=== PATIENT | male | born 1970 | race Caucasian/White ===

== ENCOUNTER 2016-07-09 13:13 | Emergency (ER) | payer BC ==
--- NOTE | 2016-07-09 13:31 | EDM.PDOC ---
ED HPI GI/ABDOMINAL - General Stated Complaint: ABDOMINAL PAIN Time Seen by Provider: 07/09/16 13:31 Source of Information: Reports: Patient - History of Present Illness INITIAL COMMENTS - FREE TEXT/NARRATIVE: Patient with N/V/D that started Tuesday. He has been doing bland diet and fluids , Zofran ODT. His son had this as well and it resolved in 1-2 days. Patient now feeling weaker, N/V persists but he has not had a BM in 2 days. Decreased appetite, tolerating small sips of fluids. Denies fever. Here today as pain is worse (LLQ) and no improvement in symptoms. - Related Data Allergies/ADRs: Allergies Allergy/AdvReac Type Severity Reaction Status Date / Time celecoxib [From Celebrex] Allergy Dizziness Verified 07/09/16 13:28 Home Meds: Home Meds Aspirin 81 mg PO BRK 07/09/16 [History] Gabapentin [Neurontin] 300 mg PO TID 07/09/16 [History] Insulin Glarg,Human.Rec.Analog [Lantus] 61 units SUBCUT BEDTIME 07/09/16 [ History] Insulin Lispro [Humalog Kwikpen U-100] 20 units SUBCUT TIDMEALS 07/09/16 [ History] Lisinopril 10 mg PO DAILY 07/09/16 [History] Ondansetron [Zofran ODT] 4 mg PO Q4H 07/09/16 [History] Rosuvastatin [Crestor] 10 mg PO BEDTIME 07/09/16 [History] traZODone 1 tab PO BEDTIME 07/09/16 [History] Social & Family History - Tobacco Use Years of Tobacco use: 25 Used Tobacco, but Quit: No Second Hand Smoke Exposure: No - Alcohol Use Days Per Week of Alcohol Use: 0 - Recreational Drug Use Recreational Drug Use: Yes Drug Use in Last 12 Months: No Recreational Drug Type: Reports: Marijuana/Hashish, Other (see below) ED ROS GENERAL - Review of Systems Review Of Systems: See Below Constitutional: Reports: chills, weakness, fatigue, decreased appetite. Denies : fever HEENT: Reports: No symptoms Respiratory: Reports: No Symptoms Cardiovascular: Reports: No symptoms GI/Abdominal: Reports: Abdominal pain, Diarrhea, Decreased appetite, Nausea, Vomiting. Denies: Constipation, Distension, Hematochezia, Melena : Reports: no symptoms Musculoskeletal: Reports: no symptoms Skin: Reports: no symptoms ED EXAM, GI/ABD - Physical Exam Exam: See Below Exam Limited By: No limitations General Appearance: alert, WD/WN, moderate distress Throat/Mouth: Normal oropharynx, Other (Dry mucus membranes) Head: atraumatic, normocephalic Neck: normal inspection. No: lymphadenopathy (L), lymphadenopathy (R) Respiratory/Chest: no respiratory distress, lungs clear, normal breath sounds Cardiovascular: normal peripheral pulses, regular rate, rhythm, no murmur GI/Abdominal: normal bowel sounds, soft, tenderness (Lower abdominal tenderness , worse on left side). No: McBurney's sign, Osborn's sign Skin Exam: Warm, Dry Course - Vital Signs Last Recorded V/S: Last Vital Signs Temp 98.4 F 07/09/16 13:28 Pulse 101 H 07/09/16 13:28 Resp 14 07/09/16 13:28 BP 157/96 H 07/09/16 13:28 Pulse Ox 95 07/09/16 13:28 - Orders/Labs/Meds Orders: Active Orders 24 hr Category Date Time Status CULTURE STOOL + SHIGATOX [RM] Stat Lab 07/09/16 16:42 Received Labs: Laboratory Tests 07/09/16 07/09/16 Range/Units 13:45 16:42 Lipase < 10 L (73-393) U/L C.difficile [id number] Presumptive negative C. difficile Tox (PCR) Negative Meds: Medications Discontinued Medications Generic Name Dose Route Start Last Admin Trade Name Freq PRN Reason Stop Dose Admin Al Hydroxide/Mg Hydroxide 30 0 ml 07/09/16 16:55 07/09/16 17:07 ml/ Lidocaine HCl 15 ml PO 07/09/16 16:56 45 ml ONETIME ONE Administration Diatrizoate Meglum/Diatrizoate Sod 90 ml 07/09/16 16:23 07/09/16 16:26 Gastrografin 37% PO 07/09/16 16:24 90 ml ONETIME ONE Administration Hydromorphone HCl 0.5 mg 07/09/16 14:05 07/09/16 14:16 Dilaudid IVPUSH 07/09/16 14:06 0.5 mg ONETIME ONE Administration Hydromorphone HCl 0.5 mg 07/09/16 14:50 07/09/16 14:56 Dilaudid IVPUSH 07/09/16 14:51 0.5 mg ONETIME ONE Administration Sodium Chloride 1,000 mls @ 999 mls/hr 07/09/16 14:04 07/09/16 14:15 Normal Saline IV 07/09/16 15:04 999 mls/hr ONETIME ONE Administration Sodium Chloride 1,000 mls @ 150 mls/hr 07/09/16 16:15 07/09/16 16:45 Normal Saline IV 150 mls/hr ASDIRECTED LAZARUS Administration Iopamidol 150 ml 07/09/16 16:23 07/09/16 16:26 Isovue-300 (61%) IVPUSH 07/09/16 16:24 125 ml ONETIME ONE Administration Ondansetron HCl 4 mg 07/09/16 14:05 07/09/16 14:15 Zofran IVPUSH 07/09/16 14:06 4 mg ONETIME ONE Administration Sodium Chloride 10 ml 07/09/16 16:23 07/09/16 16:26 Saline Flush FLUSH 10 ml ONETIME PRN Administration IV FLUSH - Re-Assessments/Exams Free Text/Narrative Re-Assessment/Exam: WBC elevated at 18,270, CRP 3.5. H pylori serum drawn in [facility] was positive but stool was negative. No WBC on stool culture and C diff negative. CT demonstrates no acute pathology. Patient significantly improved with Zofran and IV fluids. I suspect back pain from lying around this week. Will discharge home, bland diet and push fluids. He is to follow-up in the clinic on Tuesday if not resolved. 07/09/16 20:07 Departure - Departure Time of Disposition: 18:56 Disposition: Home, Self-Care 01 Condition: good Clinical Impression: Gastroenteritis Instructions: Viral Gastroenteritis, Adult, [id number] Referrals: Flavio Walker Jr, MD [Primary Care Provider] - Forms: ED Department Discharge Additional Instructions: Rest, push oral fluids, bland diet as tolerated. Zofran as needed. Follow-up with primary provider Tuesday if symptoms not resolved or certainly back to ER if any worsening of pain, fever or not tolerating oral fluids. - My Orders Last 24 Hours: My Active Orders 07/09/16 16:42 CULTURE STOOL + SHIGATOX [RM] Stat - Assessment/Plan Last 24 Hours: My Active Orders 07/09/16 16:42 CULTURE STOOL + SHIGATOX [RM] Stat
[2016-07-09 13:35] VITALS: BP 157/96
[2016-07-09] MEDS ORDERED: Sodium Chloride 0.9% 1,000 ML IV ONE (14:04)
[2016-07-09] MEDS ORDERED: Ondansetron 4 MG/2 ML SDV IVPUSH ONE (14:05)
[2016-07-09] MEDS ORDERED: HYDROmorphone 0.5 MG/0.5 ML Syringe IVPUSH ONE ×2 (14:05→14:50)
[2016-07-09] MEDS ORDERED: Sodium Chloride 0.9% 1,000 ML IV SCH (16:15)
[2016-07-09] MEDS ORDERED: Diatrizoate Meglumine/Diatrizoate Sodium 37% 120 ML Bottle PO ONE (16:23)
[2016-07-09] MEDS ORDERED: Sodium Chloride 0.9% 10 ML Syringe FLUSH PRN (16:23)
[2016-07-09] MEDS ORDERED: Iopamidol 612 MG/ML 150 ML Bottle IVPUSH ONE (16:23)
--- NOTE | 2016-07-09 16:45 | CT ---
CT abdomen and pelvis Technique: Multiple axial sections were obtained from above the dome of the diaphragm inferiorly through the pubic symphysis. Intravenous and oral contrast was utilized. Delayed images were also obtained through the bladder. Comparison: No previous abdominal CT. Findings: Visualized lung bases shows nothing acute. Small hiatal hernia is seen. Liver shows no focal parenchymal abnormality. Gallbladder shows no calcified gallstones. Spleen appears within normal limits. Adrenal glands show no nodule. Pancreas appears within normal limits. Aorta shows no aneurysmal dilatation. No retroperitoneal adenopathy or mesenteric abnormalities are seen. No pelvic mass or adenopathy is seen. Appendix is seen and is normal in size with no inflammatory change. No pelvic mass or adenopathy is seen. No inflammatory change or free fluid is seen. No bowel dilatation is identified. Delayed images shows contrast within the bladder and distal ureters. Bone window settings were reviewed which shows mild scattered degenerative change within the spine which is most severe at L5-S1 with severe disc space narrowing and vacuum phenomena. Impression: 1. Incidental findings. Nothing acute is identified on CT study of the abdomen and pelvis. Diagnostic code #2
[2016-07-09] MEDS ORDERED: Alum Hydrox/Mag Hydrox/Simeth 30 ML, Lidocaine 2% 15 ML PO ONE ×2 (16:55)
== END 2016-07-09 19:06 | disposition home or self-care (01) ==
LOC: JD.ED 13:13
DX: K52.9 Noninfective gastroenteritis and colitis, unspecified (principal); Z88.8 Allergy status to other drugs, medicaments and biological substances; Z79.82 Long term (current) use of aspirin; Z79.4 Long term (current) use of insulin
CPT/HCPCS: 36415; 74177; 83690; 87046; 87338; 87493; 89055; 96361; 96374; 96375; 99284; A9270; J1170; J2405; J7040; J7050; Q9963; Q9967; 87427; 99285

== ENCOUNTER 2017-08-23 11:09 | Emergency (ER) | payer BC ==
[2017-08-23] MEDS ORDERED: Ondansetron 4 MG/2 ML SDV IVPUSH ONE (11:38)
[2017-08-23] MEDS ORDERED: Sodium Chloride 0.9% 1,000 ML IV STA (11:38)
[2017-08-23] MEDS ORDERED: Sodium Chloride 0.9% 10 ML Syringe FLUSH PRN (11:38)
[2017-08-23] MEDS ORDERED: diphenhydrAMINE 50 MG/ML SDV IVPUSH ONE (11:41)
[2017-08-23] MEDS ORDERED: Famotidine 20 MG/2 ML SDV IVPUSH ONE (11:41)
[2017-08-23] MEDS ORDERED: Sodium Chloride 0.9% 1,000 ML ONE (13:27)
[2017-08-23] MEDS ORDERED: Sodium Chloride 0.9% 1,000 ML IV ONE (13:28)
--- NOTE | 2017-08-23 13:50 | EDM.PDOC ---
ED HPI GENERAL MEDICAL PROBLEM - General Chief Complaint: Gastrointestinal Problem Stated Complaint: SKIN COMPLAINT/POSS DEHYDRATION Time Seen by Provider: 08/23/17 11:28 Source of Information: Reports: Patient History Limitations: Reports: No Limitations - History of Present Illness INITIAL COMMENTS - FREE TEXT/NARRATIVE: The patient presents with nausea, vomiting and diarrhea. This started on Tuesday. He denies any abdominal pain. He has no fever but he does have chills. All of his family had been sick also. He has no chest pain or shortness of breath. He does not think he ate any bad food. Onset: Gradual Duration: Day(s): Severity: Moderate Improves with: Reports: None Worsens with: Reports: None Associated Symptoms: Reports: Fever/Chills, Nausea/Vomiting. Denies: Chest Pain , Cough, Headaches, Shortness of Breath - Related Data Allergies Allergy/AdvReac Type Severity Reaction Status Date / Time celecoxib [From Celebrex] AdvReac Dizziness Verified 08/23/17 11:18 Home Meds: Home Meds Aspirin 81 mg PO BRK 07/09/16 [History] Gabapentin [Neurontin] 300 mg PO TID 07/09/16 [History] Lisinopril 10 mg PO DAILY 07/09/16 [History] Rosuvastatin [Crestor] 10 mg PO BEDTIME 07/09/16 [History] traZODone 1 tab PO BEDTIME 07/09/16 [History] Famotidine [Pepcid] 1 tab PO DAILY 08/23/17 [History] Insulin Lispro [Humalog Kwikpen U-200] 0 units SUBCUT TIDMEALS 08/23/17 [History ] Ondansetron [Zofran ODT] 4 mg PO Q6H PRN #20 tab.dis 08/23/17 [Rx] Past Medical History Cardiovascular History: Reports: High Cholesterol, Hypertension Gastrointestinal History: Reports: GERD Endocrine/Metabolic History: Reports: Diabetes, Type II - Infectious Disease History Infectious Disease History: Reports: None - Past Surgical History Musculoskeletal Surgical History: Reports: Arthroscopic Procedure, Shoulder Surgery Social & Family History - Tobacco Use Smoking Status *Q: Current Every Day Smoker Years of Tobacco use: 30 Packs/Tins Daily: 1.5 - Caffeine Use Caffeine Use: Reports: Coffee - Recreational Drug Use Recreational Drug Use: No ED ROS GENERAL - Review of Systems Review Of Systems: See Below Constitutional: Reports: Chills. Denies: Fever HEENT: Reports: No Symptoms Respiratory: Reports: No Symptoms Cardiovascular: Reports: No Symptoms Endocrine: Reports: No Symptoms GI/Abdominal: Reports: Diarrhea, Nausea, Vomiting : Reports: No Symptoms Musculoskeletal: Reports: No Symptoms ED EXAM, GI/ABD - Physical Exam Exam: See Below Exam Limited By: No Limitations General Appearance: Alert, No Apparent Distress Ears: Normal External Exam Nose: Normal Inspection Head: Atraumatic, Normocephalic Neck: Normal Inspection Respiratory/Chest: No Respiratory Distress, Lungs Clear, Normal Breath Sounds Cardiovascular: Regular Rate, Rhythm, No Edema, No Murmur GI/Abdominal Exam: Soft, Non-Tender, No Organomegaly, No Mass Back Exam: Normal Inspection Extremities: Normal Inspection Course - Vital Signs Last Recorded V/S: Last Vital Signs Temp 97.1 F 08/23/17 11:14 Pulse 102 H 08/23/17 11:14 Resp 18 08/23/17 11:14 BP 138/94 H 08/23/17 11:14 Pulse Ox 95 08/23/17 11:14 Orthostatic Blood Pressure [ 126/83 Standing] Orthostatic Blood Pressure [ 132/83 Supine] - Orders/Labs/Meds Orders: Active Orders 24 hr Category Date Time Status Peripheral IV Care [RC] . DIRECTED Care 08/23/17 11:40 Active UA W/MICROSCOPIC [URIN] Stat Lab 08/23/17 13:05 Ordered Sodium Chloride 0.9% [Saline Flush] Med 08/23/17 11:38 Active 10 ml FLUSH ASDIRECTED PRN ED Antiemetic Medication Reflex [OM.PC] Stat Oth 08/23/17 11:40 Ordered Peripheral IV Insertion Adult [OM.PC] Stat Oth 08/23/17 11:38 Ordered Medication Orders Sodium Chloride (Saline Flush) 10 ml FLUSH ASDIRECTED PRN PRN Reason: Keep Vein Open Last Admin: 08/23/17 11:53 Dose: 10 ml Labs: Laboratory Tests 08/23/17 08/23/17 08/23/17 Range/Units 11:35 11:45 13:05 WBC 5.55 (4.23-9.07) K/mm3 RBC 5.63 (4.63-6.08) M/mm3 Hgb 16.1 (13.7-17.5) gm/L Hct 46.4 (40.1-51.0) % MCV 82.4 (79.0-92.2) fl MCH 28.6 (25.7-32.2) pg MCHC 34.7 (32.2-35.5) g/dl RDW Std Deviation 45.2 H (35.1-43.9) fL Plt Count 182 (163-337) K/mm3 MPV 10.7 (9.4-12.3) fl Neut % (Auto) 42.0 (34.0-67.9) % Lymph % (Auto) 44.1 (21.8-53.1) % Payne % (Auto) 11.0 (5.3-12.2) % Eos % (Auto) 1.6 (0.8-7.0) Baso % (Auto) 1.1 (0.1-1.2) % Neut # (Auto) 2.33 (1.78-5.38) K/mm3 Lymph # (Auto) 2.45 (1.32-3.57) K/mm3 Payne # (Auto) 0.61 (0.30-0.82) K/mm3 Eos # (Auto) 0.09 (0.04-0.54) K/mm3 Baso # (Auto) 0.06 (0.01-0.08) K/mm3 Sodium 134 L (136-145) mEq/L Potassium 4.2 (3.5-5.1) mEq/L Chloride 102 (98-107) mEq/L Carbon Dioxide 24 (21-32) mEq/L Anion Gap 12.2 (5-15) BUN 16 (7-18) mg/dL Creatinine 1.0 (0.7-1.3) mg/dL Est Cr Clr Drug Dosing 87.40 mL/min Estimated GFR (MDRD) > 60 (>60) mL/min BUN/Creatinine Ratio 16.0 (14-18) Glucose 266 H (74-106) mg/dL Calcium 9.0 (8.5-10.1) mg/dL Total Bilirubin 0.7 (0.2-1.0) mg/dL AST 43 H (15-37) U/L ALT 67 H (16-63) U/L Alkaline Phosphatase 104 (46-116) U/L Total Protein 8.1 (6.4-8.2) g/dl Albumin 3.6 (3.4-5.0) g/dl Globulin 4.5 gm/dL Albumin/Globulin Ratio 0.8 L (1-2) Lipase 80 (73-393) U/L Urine Color Yellow (Yellow) Urine Appearance Clear (Clear) Urine pH 6.0 (5.0-8.0) Ur Specific [place] 1.025 (1.005-1.030) Urine Protein Negative (Negative) Urine Glucose (UA) 1+ H (Negative) Urine Ketones Negative (Negative) Urine Occult Blood Trace-intact H (Negative) Urine Nitrite Negative (Negative) Urine Bilirubin Negative (Negative) Urine Urobilinogen 1.0 (0.2-1.0) Ur Leukocyte Esterase Negative (Negative) Urine RBC 0-5 (0-5) /hpf Urine WBC 0-5 (0-5) /hpf Ur Epithelial Cells 0-5 (0-5) /hpf Urine Bacteria Few (FEW) /hpf Urine Mucus Not seen (FEW) /hpf Meds: Medications Generic Name Dose Route Start Last Admin Trade Name Chey[place] PRN Reason Stop Dose Admin Sodium Chloride 10 ml 08/23/17 11:38 08/23/17 11:53 Saline Flush FLUSH 10 ml ASDIRECTED PRN Administration Keep Vein Open Discontinued Medications Generic Name Dose Route Start Last Admin Trade Name Cheyenne PRN Reason Stop Dose Admin Diphenhydramine HCl 50 mg 08/23/17 11:41 08/23/17 12:01 Benadryl IVPUSH 08/23/17 11:42 50 mg ONETIME ONE Administration Famotidine 20 mg 08/23/17 11:41 08/23/17 11:57 Pepcid IVPUSH 08/23/17 11:42 20 mg ONETIME ONE Administration Sodium Chloride 1,000 mls @ 2,000 mls/hr 08/23/17 11:38 08/23/17 12:02 Normal Saline IV 08/23/17 12:07 2,000 mls/hr .BOLUS STA Administration Sodium Chloride 1,000 mls @ 1,000 mls/hr 08/23/17 13:28 08/23/17 13:31 Normal Saline IV 08/23/17 14:27 1,000 mls/hr ONETIME ONE Administration Sodium Chloride Confirm 08/23/17 13:27 08/23/17 13:31 Normal Saline Administered 08/23/17 13:28 Not Given Dose 1,000 mls @ as directed .ROUTE .STK-MED ONE Ondansetron HCl 4 mg 08/23/17 11:38 08/23/17 11:55 Zofran IVPUSH 08/23/17 11:39 4 mg ONETIME ONE Administration - Re-Assessments/Exams Free Text/Narrative Re-Assessment/Exam: 08/23/17 15:28 I ordered an IV NS 2L bolus, zofran 4mg IV and labs. His CBC looks good. His Na was low at 134. His glucose was 166. His AST was elevated at 43. His ALT was elevated at 67. His lipase was normal. His UA shows no UTI. He feels better and would like to drink some water. If he can keep that down, he can go. Departure - Departure Time of Disposition: 15:30 Disposition: Home, Self-Care 01 Condition: Good Clinical Impression: Viral gastroenteritis - Discharge Information Prescriptions: Ondansetron [Zofran ODT] 4 mg PO Q6H PRN #20 tab.dis PRN Reason: Nausea\vomiting Referrals: Flavio Walker Jr, MD [Primary Care Provider] - 1 Week Forms: ED Department Discharge Additional Instructions: Take zofran every 6 hours as needed for nausea and vomiting. Drink plenty of fluids and advance your diet as tolerated. Please return if you are worse. - My Orders Last 24 Hours: My Active Orders 08/23/17 11:38 Sodium Chloride 0.9% [Saline Flush] 10 ml FLUSH ASDIRECTED PRN Peripheral IV Insertion Adult [OM.PC] Stat 08/23/17 11:40 Peripheral IV Care [RC] . DIRECTED ED Antiemetic Medication Reflex [OM.PC] Stat 08/23/17 13:05 UA W/MICROSCOPIC [URIN] Stat - Assessment/Plan Last 24 Hours: My Active Orders 08/23/17 11:38 Sodium Chloride 0.9% [Saline Flush] 10 ml FLUSH ASDIRECTED PRN Peripheral IV Insertion Adult [OM.PC] Stat 08/23/17 11:40 Peripheral IV Care [RC] . DIRECTED ED Antiemetic Medication Reflex [OM.PC] Stat 08/23/17 13:05 UA W/MICROSCOPIC [URIN] Stat
[2017-08-23 15:50] VITALS: BP 114/70
== END 2017-08-23 15:41 | disposition home or self-care (01) ==
LOC: JD.ED 11:09
DX: A08.4 Viral intestinal infection, unspecified (principal); E78.00 Pure hypercholesterolemia, unspecified; I10 Essential (primary) hypertension; E11.9 Type 2 diabetes mellitus without complications; K21.9 Gastro-esophageal reflux disease without esophagitis; F17.210 Nicotine dependence, cigarettes, uncomplicated; Z79.4 Long term (current) use of insulin; Z79.82 Long term (current) use of aspirin; Z88.8 Allergy status to other drugs, medicaments and biological substances; Z79.899 Other long term (current) drug therapy
CPT/HCPCS: 36415; 80053; 81001; 83690; 85025; 96361; 96374; 96375; 99284; J1200; J2405; J7040; J7050

== ENCOUNTER 2017-08-24 14:08 | Emergency (ER) | payer BC ==
[2017-08-24] MEDS ORDERED: Sodium Chloride 0.9% 500 ML IV ONE ×2 (14:44→16:02)
--- NOTE | 2017-08-24 15:39 | EDM.PDOC ---
ED HPI GENERAL MEDICAL PROBLEM - General Chief Complaint: Syncope Stated Complaint: SYNCOPE/NAUSEA/VOMITING Time Seen by Provider: 08/24/17 14:18 Source of Information: Reports: Patient, RN Notes Reviewed - History of Present Illness INITIAL COMMENTS - FREE TEXT/NARRATIVE: 46 year old male referred from [facility] for further evaluation of dizziness, balance difficulty. He has been ill for about 4 to 6 wks, started with a R knee burisitis about 5 to 6 wks ago. He than developed abd pain, vomiting diarrhea about a week or 2 later. THe bursitis cleared with abx. The vomting, diarrhea, abd pain continued, LFT's became mildly elevated, CRP went as high as 52. Recent CT showed splenomegally. He has had mild throbyctopenia. He has had endoscopy, colonoscopy that showed some bowel wall thickening consitent with colitis Other family members became ill with vomiting and diarrhea 5 days ago which he developed 3 days ago. That is now better. He developed hives yesterday that is better today. Today he is more dizzy, states he is "off balance when he tries to stand or walk". - Related Data Allergies Allergy/AdvReac Type Severity Reaction Status Date / Time celecoxib [From Celebrex] AdvReac Dizziness Verified 08/24/17 14:13 Home Meds: Home Meds Aspirin 81 mg PO BRK 07/09/16 [History] Gabapentin [Neurontin] 300 mg PO TID 07/09/16 [History] Lisinopril 10 mg PO DAILY 07/09/16 [History] Rosuvastatin [Crestor] 10 mg PO BEDTIME 07/09/16 [History] traZODone 1 tab PO BEDTIME 07/09/16 [History] Famotidine [Pepcid] 1 tab PO DAILY 08/23/17 [History] Insulin Lispro [Humalog Kwikpen U-200] 0 units SUBCUT TIDMEALS 08/23/17 [History ] Ondansetron [Zofran ODT] 4 mg PO Q6H PRN #20 tab.dis 08/23/17 [Rx] Past Medical History Cardiovascular History: Reports: High Cholesterol, Hypertension Gastrointestinal History: Reports: GERD Endocrine/Metabolic History: Reports: Diabetes, Type II - Infectious Disease History Infectious Disease History: Reports: None - Past Surgical History Musculoskeletal Surgical History: Reports: Arthroscopic Procedure, Shoulder Surgery Social & Family History - Tobacco Use Smoking Status *Q: Current Every Day Smoker Years of Tobacco use: 30 Packs/Tins Daily: 1 - Caffeine Use Caffeine Use: Reports: Coffee, Energy Drinks - Recreational Drug Use Recreational Drug Use: No ED ROS GENERAL - Review of Systems Review Of Systems: See Below Constitutional: Reports: Chills (gone). Denies: Fever HEENT: Denies: Rhinitis, Throat Pain Respiratory: Denies: Shortness of Breath Cardiovascular: Denies: Chest Pain GI/Abdominal: Reports: Abdominal Pain, Diarrhea (now better), Nausea, Vomiting ( gone) Musculoskeletal: Reports: Other (generalized achiness). Denies: Neck Pain Skin: Denies: Rash Neurological: Reports: Dizziness, Difficulty Walking, Weakness. Denies: Numbness, Syncope, Tingling, Trouble Speaking ED EXAM, DIZZINESS - Physical Exam Exam: See Below General Appearance: Alert, No Apparent Distress Eye Exam: Bilateral Eye: PERRL, Other (no nystagmus) Ears: Normal External Exam Nose: Normal Inspection Throat/Mouth: Normal Inspection Head Exam: Atraumatic. No: Facial Swelling Neck: Supple, Full Range of Motion Respiratory/Chest: No Respiratory Distress, Lungs Clear, Normal Breath Sounds Cardiovascular: Regular Rate, Rhythm GI/Abdominal: Soft, Non-Tender. No: Guarding, Rebound Neurological: Alert, No Motor/Sensory Deficits, Other (finger to nose testing nl ) Back Exam: No: CVA Tenderness (L), CVA Tenderness (R) Extremities: Normal Inspection, Normal Range of Motion Skin Exam: Warm, Dry, Normal Color, No Rash Course - Vital Signs Last Recorded V/S: Last Vital Signs Temp 98.1 F 08/24/17 14:14 Pulse 92 08/24/17 17:52 Resp 16 08/24/17 17:52 BP 125/75 08/24/17 17:52 Pulse Ox 93 L 08/24/17 17:52 Orthostatic Blood Pressure [ 118/80 Standing] Orthostatic Blood Pressure [ 127/79 Supine] - Orders/Labs/Meds Orders: Active Orders 24 hr Category Date Time Status Orthostatic Vital Signs [RC] ASDIRECTED Care 08/24/17 15:30 Active CMV ABS IGG/IGM [REF] Stat Lab 08/24/17 16:20 Received CMV PCR [REF] Stat Lab 08/24/17 16:20 Received CMV QUANT DNA PCR (PLASMA) [REF] Stat Lab 08/24/17 16:20 Received Labs: Laboratory Tests 08/24/17 08/24/17 08/24/17 Range/Units 14:20 14:20 16:30 WBC 4.50 (4.23-9.07) K/mm3 RBC 5.14 (4.63-6.08) M/mm3 Hgb 14.7 (13.7-17.5) gm/L Hct 43.0 (40.1-51.0) % MCV 83.7 (79.0-92.2) fl MCH 28.6 (25.7-32.2) pg MCHC 34.2 (32.2-35.5) g/dl RDW Std Deviation 44.8 H (35.1-43.9) fL Plt Count 193 (163-337) K/mm3 MPV 10.7 (9.4-12.3) fl Neutrophils % (Manual) 58 (40-60) % Band Neutrophils % 0 (0-10) % Lymphocytes % (Manual) 38 (20-40) % Atypical Lymphs % 0 % Monocytes % (Manual) 2 (2-10) % Eosinophils % (Manual) 0 L (0.8-7.0) % Basophils % (Manual) 2 H (0.2-1.2) Platelet Estimate Adequate RBC Morph Comment Normal POC Glucose 38 L (70-105) mg/dL Monoscreen Negative (NEGATIVE) 08/24/17 Range/Units 17:31 WBC (4.23-9.07) K/mm3 RBC (4.63-6.08) M/mm3 Hgb (13.7-17.5) gm/L Hct (40.1-51.0) % MCV (79.0-92.2) fl MCH (25.7-32.2) pg MCHC (32.2-35.5) g/dl RDW Std Deviation (35.1-43.9) fL Plt Count (163-337) K/mm3 MPV (9.4-12.3) fl Neutrophils % (Manual) (40-60) % Band Neutrophils % (0-10) % Lymphocytes % (Manual) (20-40) % Atypical Lymphs % % Monocytes % (Manual) (2-10) % Eosinophils % (Manual) (0.8-7.0) % Basophils % (Manual) (0.2-1.2) Platelet Estimate RBC Morph Comment POC Glucose 110 H (70-105) mg/dL Monoscreen (NEGATIVE) Meds: Medications Discontinued Medications Generic Name Dose Route Start Last Admin Trade Name [place] PRN Reason Stop Dose Admin Dextrose/Water 50 ml 08/24/17 16:33 08/24/17 16:33 Dextrose 50% In Water IVPUSH 08/24/17 16:34 50 ml ONETIME ONE Administration Dextrose/Water Confirm 08/24/17 16:32 08/24/17 16:37 Dextrose 50% In Water Administered 08/24/17 16:33 Not Given Dose 50 ml .ROUTE .STK-MED ONE Sodium Chloride 500 mls @ 999 mls/hr 08/24/17 14:44 08/24/17 14:53 Normal Saline IV 08/24/17 15:14 999 mls/hr .BOLUS ONE Administration Sodium Chloride 500 mls @ 999 mls/hr 08/24/17 16:02 Normal Saline IV 08/24/17 16:32 .BOLUS ONE - Re-Assessments/Exams Free Text/Narrative Re-Assessment/Exam: 08/24/17 20:54 CBC nl today, CRP 16 this past morning at clinic, labs and reports from clinic reviewed. This sound like some type of long acting viral infection, mono neg at [facility], neg again today, no atypical lymphocytes today. CMV? have ordered further testing for CMV send out. CT of head normal today at clinic. He can stand on his own but somewhat unsteady, have given 1 liter NS, he felt up to going home, MRI head ordered for tomorrow, some of the balance difficulty could be medication effect, had at least 2 doses of benadryl yesterday including last evening, not sure if he took trazadone last PM or not. Discharge instr. as documented. Departure - Departure Time of Disposition: 17:39 Disposition: Home, Self-Care 01 Condition: Fair Clinical Impression: Dizziness of unknown cause, Hypoglycemia, Balance disorder Headache Qualifiers: Headache type: unspecified Headache chronicity pattern: acute headache Intractability: not intractable Qualified Code(s): R51 - Headache - Discharge Information Instructions: Migraine Headache, Hypoglycemia, [id number] Referrals: Monika Clayton NP [Primary Care Provider] - Forms: ED Department Discharge Additional Instructions: Testing for CMV, cytomegalovirus has been sent out, results should be available in 2 to 4 days, MRI of head tomorrow, 2PM, come 15 minutes early for that. Follow up with Dalila at [facility] Tuesday, call tomorrow AM for appt., do not take any further benadryl, continue other medications as previously prescribed. eat regular meals and snacks as tolerated, drink plenty of water ot maintain hydration. Return to ED as needed if symptoms worsening in any way. - My Orders Last 24 Hours: My Active Orders 08/24/17 15:30 Orthostatic Vital Signs [RC] ASDIRECTED 08/24/17 16:20 CMV ABS IGG/IGM [REF] Stat CMV PCR [REF] Stat CMV QUANT DNA PCR (PLASMA) [REF] Stat - Assessment/Plan Last 24 Hours: My Active Orders 08/24/17 15:30 Orthostatic Vital Signs [RC] ASDIRECTED 08/24/17 16:20 CMV ABS IGG/IGM [REF] Stat CMV PCR [REF] Stat CMV QUANT DNA PCR (PLASMA) [REF] Stat
[2017-08-24] MEDS ORDERED: 50% Dextrose in Water 50 ML Syringe ONE (16:32)
[2017-08-24] MEDS ORDERED: 50% Dextrose in Water 50 ML Syringe IVPUSH ONE (16:33)
[2017-08-24 18:11] VITALS: BP 125/75
== END 2017-08-24 17:52 | disposition home or self-care (01) ==
LOC: JD.ED 14:08
DX: E11.649 Type 2 diabetes mellitus with hypoglycemia without coma (principal); R51 Headache; I10 Essential (primary) hypertension; Z88.8 Allergy status to other drugs, medicaments and biological substances; Z79.899 Other long term (current) drug therapy; F17.210 Nicotine dependence, cigarettes, uncomplicated; R42 Dizziness and giddiness; R27.0 Ataxia, unspecified; J32.2 Chronic ethmoidal sinusitis
CPT/HCPCS: 36415; 70470; 82962; 85007; 85027; 86308; 86644; 86645; 87496; 87497; 96360; 96374; 99284; J7040; J7050; J7060; Q9967; 99283